=== PATIENT | female | born 1995 | race American Indian/Alaskan Native ===

== ENCOUNTER 2018-06-16 15:03 | Emergency (ER) | payer MEDICAID ==
--- NOTE | 2018-06-16 16:06 | EDM.PDOC ---
ED HPI GENERAL MEDICAL PROBLEM <LeonelAlecia Albaro - Last Filed: 06/16/18 19:49> <Paolo Caba - Last Filed: 06/29/18 22:32> - General Source of Information: Reports: Patient History Limitations: Reports: No Limitations - History of Present Illness Severity: Mild <TierraadriánHamzah - Last Filed: 07/05/18 10:10> - General Chief Complaint: POULTRY PROCESSOR Problem Stated Complaint: -BLEEDING [id number] Time Seen by Provider: 06/16/18 15:30 - History of Present Illness INITIAL COMMENTS - FREE TEXT/NARRATIVE: Patient is a . Both pregnancies were unremarkable, spontaneous vaginal deliveries. Patient is unsure why her second baby was by about one month. Patient presents with vaginal bleeding that happened yesterday. Patient is a poor historian and says the bleeding was not very much, she did not even wear a pad, about a dime size maybe. There was some blood when she went to the bathroom last night as well, again a small amount. Today the patient has not had any bleeding, but has had some brown discharge. She also had some cramping last night (2 times) that was just "one pain when I moved wrong, but it went away right away." She has also been tired for the past few days. Patient does not remember her LMP, but thinks it was in March. Patient receives care at [facility], she was supposed to get an u/s, but did not go to the appt. She has an u/s scheduled in 2 weeks in [place]. 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: Musculoskeletal History: Reports: None Neurological History: Reports: None Psychiatric History: Reports: None Endocrine/Metabolic History: Reports: None Hematologic History: Reports: None Immunologic History: Reports: None Oncologic (Cancer) History: Reports: None Dermatologic History: Reports: None - Infectious Disease History Infectious Disease History: Reports: Chicken Pox - Past Surgical History Head Surgeries/Procedures: Reports: None GI Surgical History: Reports: Cholecystectomy <CourtneyHamzah L - Last Filed: 07/05/18 10:10> Social & Family History - Tobacco Use Smoking Status *Q: Current Every Day Smoker Years of Tobacco use: 4 Packs/Tins Daily: 0.5 Second Hand Smoke Exposure: No - Caffeine Use Caffeine Use: Reports: None - Recreational Drug Use Recreational Drug Use: No <Hamzah Valdez - Last Filed: 07/05/18 10:10> ED ROS GENERAL - Review of Systems Review Of Systems: See Below Constitutional: Reports: Fatigue (for the past couple days) HEENT: Denies: Vision Change Respiratory: Denies: Shortness of Breath Cardiovascular: Denies: Chest Pain, Claudication, Edema, Lightheadedness GI/Abdominal: Reports: Abdominal Pain (see HPI). Denies: Constipation, Diarrhea , Nausea, Vomiting : Reports: Discharge. Denies: Dysuria, Frequency, Hematuria, Urgency Neurological: Denies: Headache <Hamzah Valdez - Last Filed: 07/05/18 10:10> ED EXAM <Alecia Castaneda - Last Filed: 06/16/18 19:49> <Paolo Caba - Last Filed: 06/29/18 22:32> - Physical Exam Exam: See Below Exam Limited By: No Limitations General Appearance: Alert, WD/WN, No Apparent Distress Eye Exam: Bilateral Eye: EOMI, Normal Inspection, PERRL Nose: No Blood Neck: Supple, Non-Tender, Full Range of Motion. No: Lymphadenopathy (L) Respiratory/Chest: No Respiratory Distress, Lungs Clear, Normal Breath Sounds, No Accessory Muscle Use, Chest Non-Tender Cardiovascular: Normal Peripheral Pulses, Regular Rate, Rhythm, No Edema, No Gallop, No JVD, No Murmur, No Rub GI/Abdominal Exam: Normal Bowel Sounds, Soft, Non-Tender, No Organomegaly, No Distention, No Abnormal Bruit, No Mass, Pelvis Stable Rectal Exam: Deferred (Female) Exam: Deferred for Placenta Previa (possibility (not confirmed previa) with bleeding ) Back Exam: No: CVA Tenderness (L), CVA Tenderness (R), Paraspinal Tenderness Extremities: Normal Inspection, Normal Range of Motion, Non-Tender, Normal Capillary Refill, No Pedal Edema Neurological: Alert, Oriented, CN II-XII Intact, Normal Cognition, Normal Gait, Normal Reflexes, No Motor/Sensory Deficits Psychiatric: Normal Affect, Normal Mood Skin Exam: Warm, Dry, Intact, Normal Color, No Rash Lymphatic: No Adenopathy <Hamzah Valdez - Last Filed: 07/05/18 10:10> - Physical Exam Text/Narrative:: Patient presents with blue dye all over hands, arms, and scalp, she says she just dyed her hair. (Hamzah Valdez) Course <Alecia Castaneda - Last Filed: 06/16/18 19:49> <Paolo Caba - Last Filed: 06/29/18 22:32> <Hamzah Valdez - Last Filed: 07/05/18 10:10> - Vital Signs Last Recorded V/S: Last Vital Signs Temp 97.7 F 06/16/18 15:18 Pulse 105 H 06/16/18 15:18 Resp 16 06/16/18 15:18 BP 125/76 06/16/18 15:18 Pulse Ox 99 06/16/18 15:18 - Orders/Labs/Meds Labs: Laboratory Tests 06/16/18 06/16/18 06/16/18 Range/Units 16:15 16:15 16:15 WBC 9.4 (5.0-10.0) 10^3/uL RBC 3.87 L (4.2-5.4) 10^6/uL Hgb 12.2 D (12.0-16.0) g/dL Hct 34.7 L (37.0-47.0) % MCV 89.7 (80-100) fL MCH 31.5 (27.0-34.0) pg MCHC 35.2 H (33.0-35.0) g/dL Plt Count 309 (150-450) 10^3/uL Neut % (Auto) 68.3 (42.2-75.2) % Lymph % (Auto) 22.5 (20.5-50.1) % [place] % (Auto) 6.5 (2-8) % Eos % (Auto) 2.5 (1.0-3.0) % Baso % (Auto) 0.2 (0.0-1.0) % Sodium (135-145) mmol/L Potassium (3.6-5.0) mmol/L Chloride (101-111) mmol/L Carbon Dioxide (21.0-31.0) mmol/L Anion Gap BUN (7-18) mg/dL Creatinine (0.6-1.3) mg/dL Est Cr Clr Drug Dosing mL/min Estimated GFR (MDRD) BUN/Creatinine Ratio Glucose (74-105) mg/dL Calcium (8.4-10.2) mg/dl Total Bilirubin (0.2-1.0) mg/dL AST (10-42) IU/L ALT (10-60) IU/L Alkaline Phosphatase (42-121) IU/L Total Protein (6.7-8.2) g/dl Albumin (3.2-5.5) g/dl Globulin Albumin/Globulin Ratio HCG, Qual Positive HCG, Quant > 1359 H (0-25) mIU/ml Beta HCG, Quant 04096 mIU/ml Urine Color (YELLOW) Urine Appearance (CLEAR) Urine pH (5.0-9.0) Ur Specific [place] (1.005-1.030) Urine Protein (NEGATIVE) Urine Glucose (UA) (NEGATIVE) Urine Ketones (NEGATIVE) Urine Occult Blood (NEGATIVE) Urine Nitrite (NEGATIVE) Urine Bilirubin (NEGATIVE) Urine Urobilinogen (0.2-1.0) mg/dL Ur Leukocyte Esterase (NEGATIVE) Urine RBC /HPF Urine WBC (0-5/HPF) /HPF Ur Epithelial Cells /HPF Amorphous Sediment (0/HPF) /HPF Urine Bacteria (0-FEW/HPF) /HPF Urine Opiates Screen (NEGATIVE) Ur Oxycodone Screen (NEGATIVE) Urine Methadone Screen (NEGATIVE) Ur Barbiturates Screen (NEGATIVE) U Tricyclic Antidepress (NEGATIVE) Ur Phencyclidine Scrn (NEGATIVE) Ur Amphetamine Screen (NEGATIVE) U Methamphetamines Scrn (NEGATIVE) Urine MDMA Screen (NEGATIVE) U Benzodiazepines Scrn (NEGATIVE) Urine Cocaine Screen (NEGATIVE) U Marijuana (THC) Screen (NEGATIVE) 04/06/16/18 06/16/18 Range/Units 16:15 16:22 16:22 WBC (5.0-10.0) 10^3/uL RBC (4.2-5.4) 10^6/uL Hgb (12.0-16.0) g/dL Hct (37.0-47.0) % MCV (80-100) fL MCH (27.0-34.0) pg MCHC (33.0-35.0) g/dL Plt Count (150-450) 10^3/uL Neut % (Auto) (42.2-75.2) % Lymph % (Auto) (20.5-50.1) % [place] % (Auto) (2-8) % Eos % (Auto) (1.0-3.0) % Baso % (Auto) (0.0-1.0) % Sodium 134 L (135-145) mmol/L Potassium 3.9 (3.6-5.0) mmol/L Chloride 103 (101-111) mmol/L Carbon Dioxide 21.0 (21.0-31.0) mmol/L Anion Gap 13.9 BUN 7 (7-18) mg/dL Creatinine 0.4 L (0.6-1.3) mg/dL Est Cr Clr Drug Dosing 209.08 mL/min Estimated GFR (MDRD) > 60 BUN/Creatinine Ratio 17.50 Glucose 86 (74-105) mg/dL Calcium 8.1 L (8.4-10.2) mg/dl Total Bilirubin 0.4 (0.2-1.0) mg/dL AST 34 (10-42) IU/L ALT 36 (10-60) IU/L Alkaline Phosphatase 61 (42-121) IU/L Total Protein 5.9 L (6.7-8.2) g/dl Albumin 3.4 (3.2-5.5) g/dl Globulin 2.5 Albumin/Globulin Ratio 1.36 HCG, Qual HCG, Quant (0-25) mIU/ml Beta HCG, Quant mIU/ml Urine Color Yellow (YELLOW) Urine Appearance Clear (CLEAR) Urine pH 8.5 (5.0-9.0) Ur Specific [place] 1.015 (1.005-1.030) Urine Protein Trace H (NEGATIVE) Urine Glucose (UA) Negative (NEGATIVE) Urine Ketones Negative (NEGATIVE) Urine Occult Blood Negative (NEGATIVE) Urine Nitrite Negative (NEGATIVE) Urine Bilirubin Negative (NEGATIVE) Urine Urobilinogen 1.0 (0.2-1.0) mg/dL Ur Leukocyte Esterase Negative (NEGATIVE) Urine RBC 0-5 /HPF Urine WBC Not seen (0-5/HPF) /HPF Ur Epithelial Cells Few /HPF Amorphous Sediment Moderate H (0/HPF) /HPF Urine Bacteria Moderate H (0-FEW/HPF) /HPF Urine Opiates Screen Negative (NEGATIVE) Ur Oxycodone Screen Negative (NEGATIVE) Urine Methadone Screen Negative (NEGATIVE) Ur Barbiturates Screen Negative (NEGATIVE) U Tricyclic Antidepress Negative (NEGATIVE) Ur Phencyclidine Scrn Negative (NEGATIVE) Ur Amphetamine Screen Negative (NEGATIVE) U Methamphetamines Scrn Negative (NEGATIVE) Urine MDMA Screen Negative (NEGATIVE) U Benzodiazepines Scrn Negative (NEGATIVE) Urine Cocaine Screen Negative (NEGATIVE) U Marijuana (THC) Screen Negative (NEGATIVE) - Re-Assessments/Exams Free Text/Narrative Re-Assessment/Exam: 06/16/18 18:58 I have examined the patient. I have discussed findings and treatment plan with the medical student. I agree with the assessment and plan in the following medical student's note. (Paolo Caba) Departure - Departure Time of Disposition: 19:49 Condition: Good - Discharge Information *PRESCRIPTION DRUG MONITORING PROGRAM REVIEWED*: No *COPY OF PRESCRIPTION DRUG MONITORING REPORT IN PATIENT PAT: No <Alecia Castaneda - Last Filed: 06/16/18 19:49> <Paolo Caba - Last Filed: 06/29/18 22:32> - Departure Time of Disposition: 19:55 <Hamzah Valdez - Last Filed: 07/05/18 10:10> - Departure Disposition: Home, Self-Care 01 Clinical Impression: Subchorionic hematoma - Discharge Information Instructions: Subchorionic Hematoma Referrals: PCP,None [Primary Care Provider] - Forms: ED Department Discharge Additional Instructions: rest light activity no heavy lifting set OB exam Need to have ultra sound repeated in 10 days urgent follow up severe bleeding or fever no intercourse until seen by OB
[2018-06-16 16:48] LABS: ANION GAP 13.9; CHLORIDE,CL 103 mmol/L (101-111); SODIUM,NA 134 mmol/L (135-145)
== END 2018-06-16 19:58 | disposition home or self-care (01) ==
LOC: DL.ED 15:03
DX: O20.8 Other hemorrhage in early pregnancy (principal); O99.331 Smoking (tobacco) complicating pregnancy, first trimester; F17.210 Nicotine dependence, cigarettes, uncomplicated; Z3A.15 15 weeks gestation of pregnancy
CPT/HCPCS: 36415; 76815; 80053; 80305-QW; 81001; 84702; 84703; 85025; 99285-25

== ENCOUNTER 2018-11-17 04:27 | Inpatient (IN) | payer MEDICAID ==
[2018-11-17] MEDS ORDERED: Sodium Chloride 0.9% 10 ML Syringe FLUSH PRN ×2 (04:42→05:22)
[2018-11-17] MEDS ORDERED: Lactated Ringers 1,000 ML IV SCH ×2 (04:45→13:30)
[2018-11-17] MEDS: Lactated Ringers 1,000 ML IV SCH ×2 (04:50→06:18)
[2018-11-17] MEDS ORDERED: Labetalol 100 MG/20 ML MDV IVPUSH ONE ×2 (05:16→05:52)
[2018-11-17] MEDS ORDERED: Labetalol 100 MG/20 ML MDV ONE (05:19)
[2018-11-17] MEDS ORDERED: Betamethasone Acetate/Betamethasone Sod Phosphate 30 MG/5 ML MDV ONE (05:21)
[2018-11-17] MEDS ORDERED: Magnesium Sulfate/Water 100 ML ONE (05:21)
[2018-11-17] MEDS ORDERED: Penicillin G Potassium 5,000,000 Unit Vial ONE (05:21)
[2018-11-17] MEDS ORDERED: Acetaminophen 325 MG Tab PO PRN (05:22)
[2018-11-17] MEDS ORDERED: fentaNYL 100 MCG/2 ML SDV IVPUSH PRN (05:22)
[2018-11-17] MEDS ORDERED: Tranexamic Acid 1,000 MG in Sodium Chloride 0.9% 100 ML IV PRN ×2 (05:22→09:09)
[2018-11-17] MEDS ORDERED: Lidocaine 1% 30 ML SDV INJECT PRN (05:22)
[2018-11-17] MEDS ORDERED: Methylergonovine 0.2 MG/1 ML Amp IM PRN (05:22)
[2018-11-17] MEDS ORDERED: Carboprost Tromethamine 250 MCG/1 ML Amp IM PRN ×2 (05:22→09:09)
[2018-11-17] MEDS ORDERED: Penicillin G Potassium 5 MILLUNITS in Sodium Chloride 0.9% 100 ML IV ONE (05:22)
[2018-11-17] MEDS ORDERED: Misoprostol 400 MCG (4 X 100 MCG TAB) RECTAL PRN ×2 (05:22→09:09)
[2018-11-17] MEDS ORDERED: Ondansetron 4 MG/2 ML SDV IV PRN (05:22)
[2018-11-17] MEDS ORDERED: Magnesium Sulfate/Water 100 ML IV ONE (05:25)
[2018-11-17] MEDS ORDERED: Betamethasone Acetate/Betamethasone Sod Phosphate 30 MG/5 ML MDV IM ONE (05:25)
[2018-11-17] MEDS ORDERED: Oxytocin/Normal Saline 30 UNIT/500 ML BAG IV SCH (05:30)
[2018-11-17] MEDS: Magnesium Sulfate/Water 20 GM/500 ML BAG IV SCH ×2 (06:05→16:15)
[2018-11-17] MEDS: Penicillin G Potassium 3 MILLUNITS in Sodium Chloride 0.9% 100 ML IV SCH ×2 (07:40→10:15)
--- NOTE | 2018-11-17 08:00 | HP ---
SUBJECTIVE: Lower abdominal pains that come and go. HISTORY OF PRESENT ILLNESS: A 23-year-old 3, para 1-1-0-2, currently at 37 and 1/7 weeks' gestation based on 15-week ultrasound performed as an outpatient at [facility], complaining of lower abdominal pains that come and go in a cramping quality like sensation. She denies any leakage of fluid or vaginal bleeding. She has had good movement. Denies any formal care so far this . Records here at [facility] show ultrasound performed on 06/16/2018, estimated size 15 weeks 1 day, due date 12/07/2018. Baby at the 33rd percentile for growth. Anterior placenta, no signs of previa, with a large subchorionic bleed noted. No other specific findings and no anatomy screen. Urine drug test at that time was negative. Urinalysis negative. Hemoglobin was 12.2, platelets 309. Chemistry panel; low protein and calcium, otherwise pretty unremarkable. OBSTETRICAL HISTORY: The patient reports 2 prior vaginal deliveries; first one full term without complications; second one 1 month early, no complications, no known reason for why she delivered 1 month early. LABS: None on file. PAST MEDICAL HISTORY: Reportedly negative. SURGICAL HISTORY: Negative. FAMILY HISTORY: The patient and her mother report nothing of significance at this time on brief questioning. MEDICATIONS: None. ALLERGIES: None. SOCIAL HISTORY: The patient lives with her sister, her own children, and her sister's children. Reports that the father of the baby is not actively involved. She admits to use of marijuana during the . Denies any other street drugs. Denies any use of alcohol. Smokes about 2 cigarettes per day. REVIEW OF SYSTEMS: No chest pain, shortness of breath, headaches, blurry vision, nausea, vomiting, diarrhea, constipation, fever, or chills. OBJECTIVE: General: A pleasant but very uncomfortable 23-year-old female, breathing through her contractions. Vital Signs: Initial vitals are not available to me. Current vitals; blood pressure 163/89 with a recheck of 172/102, this is after 20 mg of IV labetalol; pulse 114, down to 66 now; respiratory rate of 18; and she is afebrile. HEENT: Grossly unremarkable. Neck: Supple without adenopathy. Heart: Regular without murmur. Lungs: Clear to auscultation bilaterally. Abdomen: Gravid with a fundal height of 33 to 34 cm. heart tracing; baseline heart rate 140 beats per minute currently with moderate beat-to- beat variability. Not much in the way of accels at this time. Prior strip not currently in my hands for review. [place] not currently picking up contractions. The patient has been reporting pains about every 3 minutes. Cervical Exam: Vertex 8 cm dilated, bag of water intact, 95% effaced, and -2 station. Extremities: Trace edema. No erythema or tenderness noted. INITIAL LABS: Hemoglobin 14.1, platelets 284. Remainder of the PIH panel not yet available. Blood type information not available in the chart. ASSESSMENT: 1. 37 and 1/7 weeks' intrauterine based on 15-week ultrasound. 2. Gestational hypertension, waiting on labs to rule out preeclampsia. 3. Intrauterine growth restriction suspected, ultrasound today puts her at 33 weeks 2 days gestation. Estimated weight 2134 g, +/-316 g. Anterior, mature placenta. SWETHA of approximately 5. 4. Oligohydramnios. 5. No care. 6. Group B strep unknown. 7. Marijuana abuse. 8. Tobacco abuse. 9. History of delivery. PLAN: Expect vaginal delivery. Intensive Care Nursery has been called. With baby dating at 37 weeks by 15-week ultrasound, yet ultrasound showing baby to be 33 to 34 weeks' gestation, high anticipation that baby will need Intensive Care Nursery Services and transfer. With history of subchorionic bleed and the patient's current pain complaints, I suspect possible abruption developing with gestational hypertension. She is to be ruled out for preeclampsia; however, that could also be her cause for complications at this time. [facility] /[id number]
[2018-11-17] MEDS ORDERED: fentaNYL 100 MCG/2 ML SDV ONE (08:49)
[2018-11-17] MEDS ORDERED: Simethicone 80 MG Tab.Chew PO PRN (09:09)
[2018-11-17] MEDS ORDERED: Measles, Mumps & Rubella Vaccine 0.5 ML SDV SUBCUT ONE (09:09)
[2018-11-17] MEDS ORDERED: Benzocaine/Menthol 20%-0.5% Spray 56 GM Canister TOP PRN (09:09)
[2018-11-17] MEDS ORDERED: Calcium Gluconate 10% 1 GM/10 ML SDV IVPUSH PRN (09:33)
[2018-11-17] MEDS ORDERED: diazePAM 5 MG/ML MDV IVPUSH PRN (09:35)
[2018-11-17] MEDS ORDERED: Diphtheria,Pertussis(Acell),Tetanus Vaccine 0.5 ML SDV IM ONE (10:00)
--- NOTE | 2018-11-17 10:36 | PN ---
DATE: 11/17/2018 SUBJECTIVE: The patient is tolerating procedure well, continuing to have low pelvic pressure and cramping, but doing well without intrathecal. Blood pressures are improved with our 2 doses of 20 mg of IV labetalol. OBJECTIVE: Vital Signs: Blood pressure 152/91, pulse of 64. She is afebrile. Cervix is 9 cm dilated. Bulging bag of water intact, ruptured with AmniHook with return of lightly stained meconium fluid. heart tracing is baseline of 140 beats per minute with minimal variability. No accelerations. Prior strip only shows 10 x 10's and toco shows a lot of uterine irritability. Last couple of contractions were about 4 minutes apart. Anticipate things will progress now that the bag of water is broken. ASSESSMENT: Unchanged from admission H and P, however, category 3 tracing at this time. I am expecting rapid vaginal delivery. intensive care nursery team is in town and on their way to the hospital, and they should be able to be set up right at the same time that baby delivers. section could be considered for the non-reassuring heart tracing; however, that in reality, I anticipate, will take longer than delivering her vaginally. [facility] /[id number]
[2018-11-17] MEDS: Ibuprofen 800 MG Tab PO PRN ×2 (11:15→21:52)
[2018-11-17] MEDS: ceFAZolin 1 GM in Premix Bag 1 BAG IV SCH ×2 (13:35→21:53)
--- NOTE | 2018-11-17 20:06 | DEL ---
DATE: 11/17/2018 PREPROCEDURE DIAGNOSES: 1. 37 and 1/7 weeks' intrauterine based on 15-week ultrasound. 2. 3, para 1-1-0-2. 3. Intrauterine growth restriction diagnosed by ultrasound today at 33 weeks 2 days gestational size, estimated weight 2100 g. 4. Oligohydramnios, SWETHA of 5. 5. No care. 6. Marijuana abuse. 7. Tobacco abuse. 8. History of delivery. 9. Group B strep status unknown. 10.Rubella status unknown. 11.Blood type O positive. 12.History of hepatitis C antibody positive. No confirmatory results are available. 13.Meconium-stained fluid. 14.Inverted T-waves on telemetry with a normal EKG. POSTPROCEDURE DIAGNOSES: 1. 37 and 1/7 weeks' intrauterine based on 15-week ultrasound. 2. 3, para 1-1-0-2. 3. Intrauterine growth restriction diagnosed by ultrasound today at 33 weeks 2 days gestational size, estimated weight 2100 g. 4. Oligohydramnios, SWETHA of 5. 5. No care. 6. Marijuana abuse. 7. Tobacco abuse. 8. History of delivery. 9. Group B strep status unknown. 10.Rubella status unknown. 11.Blood type O positive. 12.History of hepatitis C antibody positive. No confirmatory results are available. 13.Meconium-stained fluid. 14.Inverted T-waves on telemetry with a normal EKG. 15.Status post spontaneous vaginal delivery, viable term female. 16.Cord avulsion. 17.Manual removal of the placenta. BRIEF HISTORY: A 23-year-old female presented to the hospital this morning with active onset of labor and was 8 cm dilated at the time of presentation. Blood pressures were severe, as high as 170s/110s, and she was treated with IV labetalol and pressures did become controlled. She did not receive any pain medications prior to delivery, but did receive 100 mcg of fentanyl for delivery of the placenta. Her labor was progressing well. Once all of her labs were received, she was started on magnesium sulfate, and she was also given penicillin for group B strep prophylaxis for the baby. The dose of betamethasone was ordered given that our first impression was that she was only 34 weeks' gestation and it was later that we found the earlier ultrasound putting her at 37 weeks' gestation. After she reached 9 cm, her labor had essentially stalled and so artificial rupture of membranes was performed followed by augmentation with Pitocin, and she went on to spontaneous vaginal delivery with details below. DESCRIPTION OF PROCEDURE: With the patient in dorsal lithotomy position, she delivered a viable female infant in the OA position over intact perineum. Baby had strong vigorous cry; was dried and stimulated. Three-vessel umbilical cord was doubly clamped and then cut, and baby handed off to the awaiting NICU team. Attention then returned to the mother, and with gentle cord traction and concomitant uterine massage, the cord easily avulsed and placenta was ultimately delivered via manual extraction. After the placenta was removed, it appeared to be intact. There was a final check of the uterus to verify there were no remaining fragments present. Labia and vagina were inspected, and there was some superficial abrasions in the perineal area, but nothing needing repair. There was a small anterior right labial laceration, hemostatic and also did not need repair. The patient overall tolerated the procedure quite well including the manual extraction of the placenta. ESTIMATED BLOOD LOSS: 500 mL. COMPLICATIONS: Cord avulsion with need for manual extraction of the placenta. FINDINGS: Viable female . Weight 1960 g, 4 pounds 5 ounces. scores of 8 and 9. Meconium-stained fluid. No abruption signs present. Thin umbilical cord and minimal amniotic fluid. DISPOSITION: Mother to remain in the delivery room. Baby is being transferred to the Intensive Care Nursery in [place]. [facility] /[id number]
[2018-11-17] MEDS: Docusate Sodium 100 MG Cap PO PRN (21:53)
[2018-11-18] MEDS: Magnesium Sulfate/Water 20 GM/500 ML BAG IV SCH (02:04)
[2018-11-18] MEDS: ceFAZolin 1 GM in Premix Bag 1 BAG IV SCH (05:56)
[2018-11-18] MEDS ORDERED: Ferrous Sulfate 325 MG Tab PO SCH (08:00)
[2018-11-18] MEDS ORDERED: Sodium Chloride 0.9% 10 ML Syringe FLUSH PRN (08:10)
[2018-11-18] MEDS: Docusate Sodium 100 MG Cap PO PRN ×2 (09:23→20:21)
[2018-11-18] MEDS: Prenatal Multivitamin with Calcium/Folic Acid/Iron Tab PO SCH (09:23)
[2018-11-18] MEDS: Ferrous Sulfate 325 MG Tab PO SCH ×3 (09:23→20:21)
[2018-11-18] MEDS: Ibuprofen 800 MG Tab PO PRN ×2 (09:24→20:21)
--- NOTE | 2018-11-18 11:43 | PN ---
DATE: 11/18/2018 SUBJECTIVE: day #1. Patient has been doing well. She has been maintained on bed rest because of her severe preeclampsia and is unable to really tell us about any symptoms of anemia. She does report that she is still tired and fatigued; however, that could be related to side effects of magnesium sulfate. She is looking forward to seeing her baby girl when she is able to be discharged home. Denies any concerns about depression at this time and is aware to look for signs and symptoms. She denies any headaches, blurry vision, chest pain, shortness of breath, right upper quadrant pain. She does have some abdominal tenderness and denies any change in her edema. Blood flow through the night has slowed significantly and fundal checks have been good. Yesterday, she did have passage of several large clots and at one point had checks weighing of over 1000 g. After a dose of TXA, that however resolved, and no other specific concerns have been raised. Records did show previous history of antibody positive for hepatitis C. Patient denies ever knowing about that test result or having any confirmatory testing performed. OBJECTIVE: GENERAL: A pleasant, 23-year-old female, lying in her bed. VITAL SIGNS: Temperature is 97.4, pulse 74, blood pressure currently 124/79, maximum was 144/87, respiratory rate of 18. HEART: Regular without murmur. LUNGS: Clear to auscultation bilaterally. ABDOMEN: Soft, nontender to touch. Her fundus is firm and at the umbilicus. EXTREMITIES: NEVA hose are on. No edema, erythema, or tenderness noted. Good capillary refill of the toes. LABORATORY DATA: Hemoglobin is down to 8.6, platelets 314. Magnesium sulfate level last was 5.8 at 6 a.m., and her AST is down to 57 from 73, ALT is down to 49 from 60. Her admission labs showed protein-creatinine ratio of 0.75. ASSESSMENT: 1. day #1, status post spontaneous vaginal delivery of an intrauterine growth restriction infant. 2. Severe preeclampsia coming up on 24 hours of magnesium sulfate. 3. 3, now para 2-1-0-3. 4. History of oligohydramnios. 5. No care. 6. Marijuana and tobacco abuse. 7. History of delivery. 8. Blood type O-positive. 9. Rubella equivocal and will need MMR vaccination. 10.Hepatitis C positive antibody history. Current labs are pending. 11.GBS status was unknown and she was given antibiotics in labor. 12.Meconium-stained fluid. 13.Umbilical cord avulsion requiring manual removal of the placenta. 14.Anemia of blood loss. 15.Elevated liver function tests due to severe preeclampsia. 16.Inverted T-waves on her telemetry, but a normal EKG. PLAN: Today, we will be discontinuing her Arora. Saline locking her IV, discontinuing the magnesium sulfate after 9 a.m. When she gets up to shower and is able to ambulate a little bit, we will see how her blood pressures respond, and we will also see how she is doing from the anemia symptoms standpoint as well as preeclampsia symptoms standpoint. I anticipate being able to discharge her tomorrow as long as things go well. I spent a fair amount of time with her today discussing all of her lab results, educating her about preeclampsia, the need for early care with her next , ways to hopefully manage these things in the future so as to not have these unexpected complications again. She has verbalized understanding and her questions have been answered. [facility] /[id number]
[2018-11-18] MEDS ORDERED: cefTRIAXone 250 MG Vial IM ONE (14:28)
[2018-11-18] MEDS ORDERED: Azithromycin 250 MG Tab PO ONE (14:30)
[2018-11-18] MEDS ORDERED: cefTRIAXone 250 MG, Lidocaine 1% 0.9 ML IM ONE ×2 (14:45)
[2018-11-18] MEDS: Labetalol 100 MG Tab PO SCH ×2 (14:53→21:00)
[2018-11-19 06:53] LABS: ANION GAP 10.7; CHLORIDE,CL 108 mmol/L (101-111); SODIUM,NA 137 mmol/L (135-145)
[2018-11-19] MEDS: Docusate Sodium 100 MG Cap PO PRN (08:24)
[2018-11-19] MEDS: Prenatal Multivitamin with Calcium/Folic Acid/Iron Tab PO SCH (08:25)
[2018-11-19] MEDS: Ferrous Sulfate 325 MG Tab PO SCH (08:25)
[2018-11-19] MEDS: Ibuprofen 800 MG Tab PO PRN (08:27)
[2018-11-19] MEDS: Labetalol 100 MG Tab PO SCH (08:28)
== END 2018-11-19 10:00 | disposition home or self-care (01) | DRG 806 ==
LOC: DL.OBCHECK 04:27 → DL.OB 04:42 → INTOOBSV 06:58 → OBSVTOIN 06:58 → DL.OB 08:44 → OBSVTOIN 08:44
PROVIDERS: ADMIT Family Medicine; ATTEND Family Medicine
PROC: 10E0XZZ Delivery of Products of Conception, External Approach (ICD-10-PCS; principal; 2018-11-17)
PROC: 10907ZC Drainage of Amniotic Fluid, Therapeutic from Products of Conception, Via Natural or Artificial Opening (ICD-10-PCS; 2018-11-17)
DX: O14.14 Severe pre-eclampsia complicating childbirth (principal); O41.03X0 Oligohydramnios, third trimester, not applicable or unspecified; Z37.0 Single live birth; D62 Acute posthemorrhagic anemia; O13.4 Gestational [pregnancy-induced] hypertension without significant proteinuria, complicating childbirth; O36.5930 Maternal care for other known or suspected poor fetal growth, third trimester, not applicable or unspecified; O99.324 Drug use complicating childbirth; O99.334 Smoking (tobacco) complicating childbirth; F17.200 Nicotine dependence, unspecified, uncomplicated; F12.10 Cannabis abuse, uncomplicated; O77.0 Labor and delivery complicated by meconium in amniotic fluid; Z3A.37 37 weeks gestation of pregnancy; Z67.40 Type O blood, Rh positive; O90.81 Anemia of the puerperium
CPT/HCPCS: 36415; 51702; 59409; 76805; 80053; 80305-QW; 82565; 82570; 83735; 84156; 84450; 84460; 84520; 84550; 85025; 85027; 86592; 86762; 86803; 86850; 86900; 86901; 87077; 87081; 87186; 87210; 87340; 87389; 87491; 87522; 87591; 90471; 90707; 90715; A9270-GY; J0690; J0696; J2001; J2540; J2590; J3010; J3475; J7050; J7120

== ENCOUNTER 2019-10-18 14:04 | Emergency (ER) | payer SELFPAY ==
[2019-10-18] MEDS ORDERED: Propofol 200 MG/20 ML SDV IV ONE (14:05)
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
--- NOTE | 2019-10-18 18:34 | CR ---
PROCEDURE INFORMATION: Exam: XR Left Tibia and Fibula Exam date and time: 10/18/2019 6:21 PM Age: 24 years old Clinical indication: Injury or trauma; Fall; Initial encounter; Fracture, traumatic; Closed fracture; Tibia; Left; Additional info: Post reduction TECHNIQUE: Imaging protocol: XR Left tibia and fibula. Views: 2 views. COMPARISON: CR Tibia Fibula Lt 10/18/2019 3:05 PM FINDINGS: Bones/joints: Displaced oblique or slightly spiral fracture of the distal left tibial metaphysis. There is posterior displacement of the distal fragment approximately 13 mm. A proximal fibular metaphyseal fracture shows mild comminution and near anatomic alignment. There is a posterior splint in place. Alignment is moderately improved since pre reduction images. Soft tissues: Mild anterior soft tissue swelling. IMPRESSION: 1. Improved alignment post reduction. There is still some posterior displacement and minor angulation of the distal tibial fragment. 2. Proximal fibular metaphyseal mildly comminuted fracture. Near anatomic alignment. 3. Posterior fiberglass splint in place.
[2019-10-18] MEDS ORDERED: HYDROmorphone 0.5 MG/0.5 ML Syringe IVPUSH ONE (18:39)
== END 2019-10-18 19:16 ==
LOC: DL.ED 14:04
DX: S82.402A Unspecified fracture of shaft of left fibula, initial encounter for closed fracture (principal); S82.202A Unspecified fracture of shaft of left tibia, initial encounter for closed fracture; Z90.49 Acquired absence of other specified parts of digestive tract; W19.XXXA Unspecified fall, initial encounter
CPT/HCPCS: 01462; 27752; 73590; 81001; 81025; 87086; 87088; 87186; 99152; 99153; 99285; J1170; J2704; 99284

== ENCOUNTER 2020-07-05 10:44 | Inpatient (IN) | payer MEDICAID ==
[2020-07-05] MEDS ORDERED: Ondansetron 4 MG/2 ML SDV IVPUSH PRN (11:18)
[2020-07-05] MEDS ORDERED: Methylergonovine 0.2 MG/1 ML Amp IM PRN (11:18)
[2020-07-05] MEDS ORDERED: Sodium Chloride 0.9% 10 ML Syringe FLUSH PRN (11:18)
[2020-07-05] MEDS ORDERED: Acetaminophen 325 MG Tab PO PRN ×2 (11:18)
[2020-07-05] MEDS ORDERED: Misoprostol 400 MCG (4 X 100 MCG TAB) RECTAL PRN (11:18)
[2020-07-05] MEDS ORDERED: Tranexamic Acid 1,000 MG in Sodium Chloride 0.9% 100 ML IV PRN (11:18)
[2020-07-05] MEDS ORDERED: Lactated Ringers 1,000 ML IV ONE ×2 (11:18→12:15)
[2020-07-05] MEDS ORDERED: Carboprost Tromethamine 250 MCG/1 ML Amp IM PRN (11:18)
[2020-07-05] MEDS ORDERED: Lidocaine 1% 30 ML SDV INJECT PRN (11:18)
[2020-07-05] MEDS ORDERED: Oxytocin/Normal Saline 30 UNIT/500 ML BAG IV SCH ×2 (11:30)
[2020-07-05] MEDS ORDERED: ceFAZolin 2 GM in Premix Bag 1 BAG IV ONE (11:30)
[2020-07-05] MEDS: Lactated Ringers 1,000 ML IV SCH ×4 (11:35→20:19)
[2020-07-05] MEDS ORDERED: ePHEDrine 50 MG/ML SDV IVPUSH PRN (11:37)
[2020-07-05] MEDS ORDERED: diphenhydrAMINE 50 MG/ML SDV IVPUSH PRN (11:37)
[2020-07-05] MEDS ORDERED: Naloxone 2 MG/2 ML Syringe IVPUSH PRN (11:37)
[2020-07-05] MEDS ORDERED: Lactated Ringers 1,000 ML IV SCH (11:45)
[2020-07-05] MEDS ORDERED: Oxytocin/Normal Saline 60 UNIT/1,000 ML BAG ONE (11:50)
[2020-07-05] MEDS ORDERED: Morphine PF 1 MG/ML Amp ITHECAL ONE (12:15)
[2020-07-05] MEDS ORDERED: Ondansetron 4 MG/2 ML SDV IV ONE (12:15)
[2020-07-05] MEDS ORDERED: Promethazine 25 MG/ML SDV IM ONE ×2 (12:15→21:22)
[2020-07-05] MEDS ORDERED: Ketorolac 30 MG/ML SDV IVPUSH ONE (12:15)
[2020-07-05] MEDS ORDERED: Dexamethasone 4 MG/ML SDV IV ONE (12:15)
--- NOTE | 2020-07-05 13:33 | PN ---
DATE: 07/05/2020 SUBJECTIVE: The patient is comfortable, has been on oxygen, an IV has been started, positional changes have ensued. OBJECTIVE: Vital Signs: heart tones in the 160s to 170s range now, deceleration recently noted, and no accelerations noted since she has been here which has been over 40 to 50 minutes despite interventions and with decelerations as noted prior. ASSESSMENT AND PLAN: Intrauterine at 39 and 2/7 weeks by 25 and 2/7 weeks ultrasound with preeclampsia, unsure of severe features, awaiting labs. Hepatitis C positive; GBS unknown; anti Le(a) antibody; urinary tract infection in the with Escherichia coli treated; history of abnormal Pap; G4, P2- 1-0-3, with nonreassuring status despite interventions and at risk with preeclampsia. I did discuss with her and her male partner recommendation to proceed with primary low transverse at this time. Consent had been obtained earlier. Please see previous dictation. We will proceed as soon as crew is ready and available. If baby maintains a heart rate, may consider spinal versus general anesthesia and we will proceed based on maternal status. [facility] /[id number]
--- NOTE | 2020-07-05 13:33 | HP ---
PATIENT IDENTIFICATION: Tiffany Montano is a 25-year-old, G4, P2-1-0-3, intrauterine at 39 and 2/7 weeks by 25 and 2/7 weeks ultrasound with diagnosed preeclampsia back when she was 31 and 6/7 weeks. Hepatitis C positive. GBS unknown. Anti-Le(a) antibody, not associated with hemolytic disease of the antibody, urinary tract infection in - treated with Escherichia coli who presents for OB care. HISTORY OF PRESENT ILLNESS: The patient has not been seen since she was 31 and 6/7 weeks when preeclampsia was diagnosed. Multiple calls have been made through the clinic to try to get her come in. She called yesterday and was instructed to come to the OB floor and presented this morning. She denies any headaches, visual changes, or upper abdominal pain. She denies any spotting, bleeding, or leaking. She does describe some back pain that is worse at night when she is lying on her bed. To put this in context, she is hepatitis C positive with a quant RNA that was positive on 03/28/2020 having an anti-Le(a) antibody positive Escherichia coli in the , and history of preeclampsia with previous in 2019 with IUGR, oligohydramnios with that delivery. Records were called for, reviewed as below, and supplemented by the patient's history. ALLERGIES: None. MEDICATIONS: vitamin. PAST MEDICAL/PAST SURGICAL HISTORY: Remarkable for hepatitis C positive, tib- fib fracture on the left with surgery in September 2019 with pins placed, and laparoscopic cholecystectomy in 2019, history of preeclampsia in previous . FAMILY HISTORY: Diabetes in maternal grandmother. Mother is a twin. Negative family history of anesthesia, bleeding problems, or defects. SOCIAL HISTORY: Last time was seen living in [facility] at a motel. Currently, father of baby Mateo Jennings is present at today's visit. Denies drug use currently. No alcohol or drug use elicited. OB HISTORY: 1. 05/17/2012, delivered 40 weeks male, 7 pounds 1 ounce. 2. 03/30/2013, 36 weeks, delivered male, 4 pounds. 3. 11/17/2018, delivered term female with oligohydramnios, severe preeclampsia, IUGR. All of these were vaginal deliveries per the patient. REVIEW OF SYSTEMS: Reviewed and otherwise felt to be contributory for the above. No fever, chills, sweats, cough, cold, runny nose, upper abdominal pain, nausea, or vomiting. OBJECTIVE: Vital Signs: Blood pressure 155/98, recheck 140/95; heart rates between 100 to 102; temperature 97.3. Appearance: Female, appears stated age, acting appropriate. Nontoxic appearance. HEENT: Head is atraumatic. EOMs intact. PERRLA. No scleral icterus. No sore throat or rhinorrhea. Mucous membranes are moist. Neck: No obvious tenderness. Lungs: Clear to auscultation bilaterally. No increased work of breathing. Heart: S1 and S2. Regular rate and rhythm. No obvious extra heart sounds. No gallops. Abdomen: Soft, nontender, nondistended. Bowel sounds positive. No other organomegaly, pulsatile masses, or hernias. No rebound, rigidity, or guarding. Genitourinary: Normal external female genitalia. Normal position and presentation of urethra. Vaginal exam reveals her to be 1.5 cm dilated, 60% effaced, -1 and -2 station, vertex suspected. Extremities: Trace pedal edema. Deep tendon reflexes 2 to 3/4 bilaterally and symmetric in lower extremities. Psychiatric: Mood and affect congruent. Judgement and insight intact. Skin: Without any cyanosis, clubbing, or jaundice. LABORATORY DATA: Did reveal a hemoglobin of 13.9, platelets 315, and white cell count of 10.1. Pending are [facility] labs as well as a type and screen. heart tones on initial evaluation did reveal in the 150s to 160s with a deceleration and drop down into the 70s, lasted approximately 3 minutes until new baseline of 120 was met, and then had another decel that lasted less than a minute down into the 100s. At current time of dictation, heart tones are in the 150s to 160s. Tocometer reveals no obvious evidence of contractions, none felt by the patient. ASSESSMENT AND PLAN: 1. Intrauterine at 39 and 2/7 weeks by 25 and 2/7 weeks ultrasound. 2. Preeclampsia. No severe features based on symptoms or blood pressure. Labs are pending. We will follow closely. 3. Hepatitis C positive status. 4. GBS unknown. We will start Ancef 2 g IV due to concerns as noted as below. 5. Anti-Le(a) antibody, not associated with hemolytic disease of the . 6. Urinary tract infection in the with Escherichia coli - treated. 7. History of abnormal Pap smear with low-grade squamous intraepithelial lesion, 10/27/2019. 8. G4, P2-1-0-3. PLAN: 1. At current time of dictation, there are concerns with heart tones. IV fluids have been started, oxygen has been started, and the patient has tried a positional change. We will continue to follow clinically and closely. If there are any concerns further, we will consider further intervention and I did discuss this with the patient as well as potential need for . I did discuss with her and her male partner risks, benefits, and alternatives, complications of including but not limited to infection; bleeding; damage to organs such as bowel, bladder, tubes, uterus, ovaries, and sometimes fetus; rarely needing a blood transfusion or further surgery, and rare maternal or . She understands, agrees, and wishes to proceed if need be. Verbal and written consents were obtained and questions were answered. 2. In terms of her preeclampsia, we will await labs. If there are severe features, we will start magnesium sulfate. Otherwise, we will continue to follow clinically and closely at this point in time. 3. In terms of her hepatitis C positive status, we will follow closely. In terms of antibody, type and screen has been ordered. Her hemoglobin is excellent at 13.9 currently. 4. We will continue to follow maternal status closely. Await labs, make treatment plans accordingly. The patient understands and agrees with the above treatment plan. [facility] /[id number]
[2020-07-05] MEDS: Ketorolac 30 MG/ML SDV IVPUSH SCH (18:24)
[2020-07-05] MEDS: Simethicone 80 MG Tab.Chew PO SCH ×2 (18:24→22:45)
[2020-07-05] MEDS ORDERED: Promethazine 25 MG/ML SDV IM PRN (20:17)
[2020-07-06] MEDS: Ketorolac 30 MG/ML SDV IVPUSH SCH ×2 (00:31→06:30)
[2020-07-06] MEDS: Acetaminophen/oxyCODONE 325-5 MG Tab PO PRN ×4 (04:27→19:24)
[2020-07-06] MEDS: Lactated Ringers 1,000 ML IV SCH ×2 (04:29→12:35)
[2020-07-06] MEDS: Simethicone 80 MG Tab.Chew PO SCH ×3 (09:08→19:23)
[2020-07-06] MEDS: Prenatal Multivitamin with Calcium/Folic Acid/Iron Tab PO SCH (09:08)
--- NOTE | 2020-07-06 09:58 | OR ---
DATE: 07/05/2020 PREOPERATIVE DIAGNOSES: 1. Intrauterine at 39 and 2/7 weeks by 25 and 2/7 weeks ultrasound. 2. Nonreassuring status. 3. Preeclampsia without severe features. 4. Hepatitis C positive. 5. GBS unknown. 6. Anti-Le(a) antibody, not associated with hemolytic disease of . 7. Urinary tract infection in with Escherichia coli -treated. 8. History of abnormal Pap smear, low-grade squamous intraepithelial lesion 10/27/2019, failed to follow up. 9. G4, P2-1-0-3. POSTOPERATIVE DIAGNOSES: 1. Intrauterine at 39 and 2/7 weeks by 25 and 2/7 weeks ultrasound, delivered. 2. Nonreassuring status. 3. Preeclampsia without severe features. 4. Hepatitis C positive. 5. GBS unknown. 6. Anti-Le(a) antibody, not associated with hemolytic disease of . 7. Urinary tract infection in with Escherichia coli -treated. 8. History of abnormal Pap smear, low-grade squamous intraepithelial lesion 10/27/2019, failed to follow up. 9. G4, P2-1-0-3. 10.Thick meconium stained fluid, placenta, cord, and baby/vernix. 11.Abruption suspected with old blood noted with delivery of placenta. PROCEDURE PERFORMED: Primary low transverse with 2-layer uterine closure. FAMILY DENTIST: Christine Champagne PGY-III ANESTHESIA: Spinal. ESTIMATED BLOOD LOSS: 300 mL. IV FLUIDS: 1000 mL of lactated Ringer's, 250 mL of Pitocin. URINE OUTPUT: 250 mL and clear yellow. START: 12:28. UTERINE INCISION: 12:29. DELIVERY: 12:30. STOP: 12:55. FINDINGS: Female, score and weight pending. DESCRIPTION OF PROCEDURE IN DETAIL: After proper consent was obtained, the patient was brought to the operating room, where spinal anesthetic was administered. Arora was placed under preoperative under sterile conditions. Doptone of heart tones was done prior to prepping and were in the 80's. Subsequently, Betadine was called for timeliness and abdomen was prepped and draped under sterile fashion with patient placed in supine position with left lateral tilt. A skin incision was then made over lower abdomen in transverse Pfannenstiel-type fashion. This was carried down the fascia and scored in the midline. Subcutaneous tissue was raked laterally and bluntly, and fascial incision was extended transversely with blunt technique, and superiorly and inferiorly with blunt technique the rectus muscles and pyramidalis muscles from the fascia. Rectus muscles were in midline using blunt technique. Abdominal cavity was then entered with blunt technique. Incision was extended superiorly and inferiorly with blunt technique. Hamzah O large retractor was introduced and used. Vesicouterine peritoneum was identified, incised in a transverse fashion with Metzenbaum scissors and bladder flap was made digitally. A curvilinear incision was then made on lower uterine segment at 1229 hours. Uterus was entered sharply. Thick meconium-stained fluid returned. Uterine incision was then extended in a transverse fashion using blunt technique. vertex was then delivered through the incision followed by rest of the without difficulty. Mouth and nares were suctioned. Cord was doubly clamped and cut. Infant was brought over to team for resuscitation. Then, approximately 10 mL of cord blood was obtained for labs. Placenta, vernix/baby, and cord were meconium-stained and thick meconium-stained fluid was noted. Placenta was then delivered with gentle cord traction and fundal massage. Uterine cavity was cleared of all blood clots and debris with lap sponge. Wilson clamps were used to grasp the uterine incision. This was closed in a running locked fashion and tied at lateral margins with 1-0 Vicryl. Second imbricating layer was then applied and tied at lateral margins with 1-0 Vicryl. First inspection of the uterine incision revealed hemostasis. Hamzah O retractor was then removed and paracolic gutters were then cleared of all blood clots and debris with lap sponge. Anterior cul-de-sac was irrigated copiously, all blood clots were removed. Second and final inspection of uterine incision and anterior cul-de-sac revealed hemostasis. Rectus muscles were then reapproximated in midline with [id number] stitch using a Fish retractor to facilitate closure. Fish was subsequently removed after its use. Subfascial tissues were found to be hemostatic and fascia was closed in a running fashion and tied at lateral margins with 0 looped PDS. Subcutaneous tissue irrigated copiously. Hemostasis was reassured. Skin was reapproximated with medium anais. Sterile Aquacel dressing was applied. Uterine fundus was firm and massaged at the conclusion of the case, -1 below umbilicus. No immediate complications were noted. Sponge, lap and needle counts were correct. The patient received 2 g of Ancef preoperatively, Pitocin per protocol, and received Toradol at the conclusion of the case for pain control. Mother is currently stable at the time of dictation. when leaving the OR was being set up for CPAP and will be evaluated. [facility] /[id number] MTDD
[2020-07-06] MEDS ORDERED: Oxytocin/Normal Saline 30 UNIT/500 ML BAG IV ONE (11:52)
--- NOTE | 2020-07-06 12:34 | PN ---
DATE: 07/06/2020 Postop day #1. SUBJECTIVE: The patient is tolerating p.o., has not ambulated yet. Passing gas. Arora is still in place. OBJECTIVE: Vital Signs: Temperature 98.2, heart rate 96, blood pressure 120/68, and respiratory rate 18. Lungs: Clear to auscultation bilaterally. Heart: S1 and S2. Regular rate and rhythm. Genitourinary: Firm uterus around the umbilicus. Aquacel dressing. Mild shadowing in the midline extends to left no more and height of 1.5 cm and length, around 5 cm to 6 cm in length. LABORATORY DATA: White cell count 15.9, hemoglobin 10.7, and platelets 302 with predelivery hemoglobin being 13.9. ASSESSMENT: Postop day #1, status post primary low transverse section with 2-layer uterine closure due to nonreassuring status. With preeclampsia without severe features, appears to be resolving after delivery. With abruption noted at delivery as well as thick meconium-stained fluid, placenta cord, and baby. PLAN: The patient will be followed closely. Potential discharge on Thursday or Thursday this week and to discuss with physicians covering in my absence over the weekend. The patient understands, agrees to above treatment plan, and will plan on making follow up on Thursday for mom and baby at this time in the clinic and have them keep that appointment. [facility] /[id number]
[2020-07-06] MEDS: Docusate Sodium 100 MG Cap PO PRN (19:24)
[2020-07-06] MEDS: Ibuprofen 800 MG Tab PO PRN (19:24)
[2020-07-07] MEDS: Acetaminophen/oxyCODONE 325-5 MG Tab PO PRN ×5 (01:08→23:29)
[2020-07-07] MEDS: Simethicone 80 MG Tab.Chew PO SCH ×5 (01:09→23:29)
[2020-07-07] MEDS: Ibuprofen 800 MG Tab PO PRN ×3 (05:36→23:29)
[2020-07-07] MEDS: Prenatal Multivitamin with Calcium/Folic Acid/Iron Tab PO SCH (08:28)
[2020-07-07] MEDS: Docusate Sodium 100 MG Cap PO PRN (23:29)
[2020-07-08] MEDS: Acetaminophen/oxyCODONE 325-5 MG Tab PO PRN ×2 (05:10→09:00)
[2020-07-08] MEDS: Ibuprofen 800 MG Tab PO PRN (08:59)
[2020-07-08] MEDS: Prenatal Multivitamin with Calcium/Folic Acid/Iron Tab PO SCH (08:59)
[2020-07-08] MEDS: Docusate Sodium 100 MG Cap PO PRN (08:59)
[2020-07-08] MEDS: Simethicone 80 MG Tab.Chew PO SCH ×2 (08:59→14:26)
--- NOTE | 2020-07-09 06:53 | PN ---
DATE: 07/07/2020 SUBJECTIVE: Postoperative day #2. Patient has no complaints this morning. She states her pain is well controlled on current oral regimen. She denies any chest pain, shortness of breath, nausea, vomiting, fevers, or chills. She is tolerating oral intake without difficulty. She has been ambulating and denies any lightheadedness or dizziness. She is voiding without difficulty. She has not had a bowel movement this hospital stay but is passing gas. Her lochia is appropriate and has noted no increased vaginal bleeding or foul-smelling vaginal discharge. The patient would like to be discharged home tomorrow. OBJECTIVE: Vital Signs: Temperature 98.0 degrees Fahrenheit, pulse 93 beats per minute, blood pressure 126/89 mmHg, respiratory rate 16 breaths per minute, O2 saturation by pulse oximetry 99%. General: The patient is sleeping soundly in bed and awakens to voice, becomes alert, appears in no acute distress with an appropriate affect. Lungs: Clear to auscultation bilaterally with no adventitial breath sounds. Symmetric air entry. Abdomen: Soft, appropriately tender, with fundus firm approximately 4 fingerbreadths below the umbilicus. Incision: Covered with Aquacel dressing, which appears clean, dry, and intact. Extremities: Nontender, nonerythematous. No lower extremity edema. Heart: S1, S2 with regular rate and rhythm. LABORATORY DATA: Postoperative labs: White blood cell count 15.9, hemoglobin 10.7 (down from hemoglobin of 13.9 on admission), hematocrit 32.6, platelet count 302 (down from 315 on admission). ASSESSMENT: Postoperative day #2 status post primary low transverse section with 2-layer uterine closure due to non-reassuring status. With preeclampsia without severe features, appears to be resolved. With abruption noted at delivery and thick meconium-stained fluid, placenta, cord, and baby. PLAN: The patient is a G4, now P2-1-0-4. The patient is status post primary low transverse section. She is meeting and postoperative milestones as expected. is recovering well in the nursery and bottle feeding exclusively. We will continue routine cares and advance activity as tolerated with anticipation of discharge home on day #3. The patient does have a clinic appointment scheduled for Thursday for a weight check for the baby. FOLLOWUP PHYSICIAN: Dr. Hakeem Campos. [facility] /[id number]
--- NOTE | 2020-07-09 13:40 | DISCH ---
ADMITTING DIAGNOSES: 1. Intrauterine at 39 and 2/7 weeks' gestation, estimated by 25 and 2/7 weeks ultrasound status post primary low-transverse section. 2. Preeclampsia, history of and supporting laboratory and clinical evidence upon admission. 3. Hepatitis C positive. 4. Group B Streptococcus, status unknown. 5. Anti-Ming antibody positive (no increased risk for hemolytic disease of the ). 6. Urinary tract infection in , etiology Escherichia coli, treated. 7. History of abnormal Pap smear showing low-grade squamous intraepithelial lesion on 10/27/2019 with no followup. 8. G4, P3-1-0-4. 9. Preeclampsia diagnosed around 05/28/2020 without severe features. 10.Blood type O-positive, rubella immune. DISCHARGE DIAGNOSES: 1. Intrauterine at 39 and 2/7 weeks' gestation, estimated by 25 and 2/7 weeks ultrasound status post primary low-transverse section. 2. Preeclampsia, history of and supporting laboratory and clinical evidence upon admission. 3. Hepatitis C positive. 4. Group B Streptococcus, status unknown. 5. Anti-Ming antibody positive (no increased risk for hemolytic disease of the ). 6. Urinary tract infection in , etiology Escherichia coli, treated. 7. History of abnormal Pap smear showing low-grade squamous intraepithelial lesion on 10/27/2019 with no followup. 8. G4, P3-1-0-4. 9. Preeclampsia diagnosed around 05/28/2020 without severe features. 10.Blood type O-positive, rubella immune. PROCEDURE PERFORMED: Primary low-transverse section with 2-layer uterine closure under spinal anesthesia. BRIEF HISTORY: The patient is a 25-year-old, G4, now P3-1-0-4 who presented with an intrauterine at 39 and 2/7 weeks estimated by a 25 and 2/7 weeks ultrasound. The patient had limited care with 5 visits, the most recent being at 33 and 6/7 weeks at which time she was diagnosed with preeclampsia. The patient was unreachable and failed to follow up with further clinic appointments. She is hepatitis C positive and her group B status is unknown. She did test positive for anti-Ming antibody which is not associated with hemolytic disease of the . Also, had urinary tract infection in which was treated. Culture grew Escherichia coli. The patient did contact the clinic on 07/04/2020 and was instructed to come to the obstetric floor for evaluation. She presented the following morning. The patient did have elevated blood pressures to 155/98 upon admission sustaining into the 150s to 140 systolic. PIH labs were drawn upon admission. heart rate tracings did show borderline tachycardia with minimal variability. No accelerations and multiple decelerations. Due to nonreassuring status, the decision was made to proceed with primary low-transverse section shortly after admission. Procedure occurred without difficulty. ESTIMATED BLOOD LOSS: 300 mL. ANESTHESIA: Spinal anesthesia. FINDINGS: A viable female was born with score of 3, 6, and 8, weighing 2795 g, 6 pounds 3 ounces. There was thick meconium- stained fluid. Placenta, cord, baby, and vernix noted on delivery as well as a suspected old placental abruption. Infant did require CPAP and close followup after , but has since recovered. The patient has been recovering well postoperative and . Post delivery PIH labs did reveal preeclampsia with elevated liver enzymes. LDH and protein creatinine ratio of 302.6. Urine drug screen was positive for THC. HOSPITAL COURSE: The patient has been recovering appropriately and postoperatively. Vital signs have improved with systolic blood pressures in the 1 teens to 120s consistently and no systemic symptoms of headache, changes in vision, lightheadedness, weakness. Vaginal bleeding has decreased over time and she has noted no abnormal or foul-smelling vaginal discharge. She does note uterine tenderness which appears to be appropriate considering. The patient is a bottle-feeding baby. She has been ambulating without lightheadedness or dizziness and tolerating regular diet. She is voiding without difficulty. Has not had a bowel movement, but is passing gas. She denies any chest pain, shortness of breath, fevers, chills, or lower extremity swelling or pain. She appears clinically appropriate for discharge today. DISCHARGE CONDITION: Good. PHYSICAL EXAMINATION: Vital Signs: Temperature 98.4 degrees Fahrenheit, pulse 84 beats per minute, blood pressure 113/65 mmHg, SpO2 of 97%. General: The patient is sitting up in bed. She is alert, appears in no acute distress with an appropriate affect. Heart: S1, S2. Regular rate and rhythm without obvious murmur. Lungs: Clear to auscultation bilaterally with no adventitial breath sounds and symmetric chest expansion. Abdomen: Soft, appropriately tender, fundus firm 4 fingerbreadths below the umbilicus. Incision: Aquacel dressing in place with some shadowing, otherwise dry and intact. Extremities: Nontender, nonerythematous with no peripheral edema. LABORATORY DATA: Postoperative hemoglobin 10.7 (down from admission hemoglobin of 13.9), white blood cell counts postoperatively 15.9 (up from admission white blood cells of 10.1), and platelets postoperatively 302 (down from admission platelets of 315). Admission CMP: BUN 9, creatinine 0.58, GFR greater than 60, uric acid 5.2, AST 65, ALT 67, lactate dehydrogenase 324. Urinalysis significant for random total protein 20.4, teszcgv-[id number] ratio 302.6, toxicology screen significant for positive THC. DISPOSITION: Home with and significant other. MEDICATIONS: [id number] Tylenol and ibuprofen as needed for pain. Continue vitamin once daily. Begin iron 325 mg once daily with vitamin C. Ferrous sulfate 325 once daily. FOLLOWUP: The patient will be scheduled for 6-week routine examination, sooner if needed. She will also be seen in the clinic with infant followups with first being scheduled for tomorrow, 07/09/2020 in the clinic at 8 a.m. INSTRUCTIONS: Routine post vaginal delivery instructions were provided. All patient's questions were answered, and she agrees with the assessment and plan of care. FOLLOWUP PHYSICIAN: Dr. Hakeem Campos. [facility] /[id number]
== END 2020-07-08 15:10 | disposition home or self-care (01) | DRG 787 ==
LOC: DL.OBCHECK 10:44 → DL.OB 11:18 → OBSVTOIN 12:30 → DL.MS 07-06 11:01
PROVIDERS: ADMIT Family Medicine; ATTEND Family Medicine
PROC: 10D00Z1 Extraction of Products of Conception, Low, Open Approach (ICD-10-PCS; principal; 2020-07-05)
DX: O14.04 Mild to moderate pre-eclampsia, complicating childbirth (principal); O98.42 Viral hepatitis complicating childbirth; Z3A.39 39 weeks gestation of pregnancy; Z37.0 Single live birth; B19.20 Unspecified viral hepatitis C without hepatic coma; O77.0 Labor and delivery complicated by meconium in amniotic fluid
CPT/HCPCS: 01961; 36415; 51702; 80305-QW; 81003; 82565; 82570; 83615; 84156; 84450; 84460; 84520; 84550; 85027; 86850; 86900; 86901; A9270-GY; J0690; J1100; J1885; J2274; J2405; J2550; J2590; J7120; U0002

== ENCOUNTER 2021-12-18 13:39 | Inpatient (IN) | payer MEDICAID ==
[2021-12-18] MEDS ORDERED: Carboprost Tromethamine 250 MCG/1 ML Amp IM PRN (14:35)
[2021-12-18] MEDS ORDERED: ceFAZolin 2 GM in Premix Bag 1 BAG IV ONE (14:35)
[2021-12-18] MEDS ORDERED: Methylergonovine 0.2 MG/1 ML Amp IM PRN (14:35)
[2021-12-18] MEDS ORDERED: Acetaminophen 325 MG Tab PO PRN (14:35)
[2021-12-18] MEDS ORDERED: ePHEDrine 50 MG/ML SDV IVPUSH PRN (14:35)
[2021-12-18] MEDS ORDERED: Citric Acid/Sodium Citrate Solution 30 ML Cup PO ONE (14:35)
[2021-12-18] MEDS ORDERED: diphenhydrAMINE 50 MG/ML SDV IVPUSH PRN (14:35)
[2021-12-18] MEDS ORDERED: Acetaminophen/oxyCODONE 325-5 MG Tab PO PRN ×2 (14:35)
[2021-12-18] MEDS ORDERED: Naloxone 2 MG/2 ML Syringe IVPUSH PRN (14:35)
[2021-12-18] MEDS ORDERED: Tranexamic Acid 1,000 MG in Sodium Chloride 0.9% 100 ML IV PRN (14:35)
[2021-12-18] MEDS ORDERED: Misoprostol 400 MCG (4 X 100 MCG TAB) RECTAL PRN (14:35)
[2021-12-18] MEDS ORDERED: Ondansetron 4 MG/2 ML SDV IVPUSH PRN (14:35)
[2021-12-18] MEDS ORDERED: Oxytocin/Normal Saline 60 UNIT/1,000 ML BAG ONE (15:16)
[2021-12-18] MEDS: Lactated Ringers 1,000 ML IV SCH (15:21)
[2021-12-18 15:32] LABS: ESTIMATED GFR 126 mL/min (>=60)
[2021-12-18 15:35] LABS: AMPHETAMINES,URINE NEGATIVE (NEGATIVE); BARBITURATES,URINE NEGATIVE (NEGATIVE); BENZODIAZEPINE,URINE NEGATIVE (NEGATIVE); MDMA (ECSTASY), URINE NEGATIVE (NEGATIVE); METHADONE,URINE NEGATIVE (NEGATIVE); METHAMPHETAMINES,URINE NEGATIVE (NEGATIVE); OPIATES,URINE NEGATIVE (NEGATIVE); OXYCODONE,URINE NEGATIVE (NEGATIVE); PHENCYCLIDINE,URINE NEGATIVE (NEGATIVE); TCA,URINE NEGATIVE (NEGATIVE)
[2021-12-18] MEDS ORDERED: Oxytocin/Normal Saline 30 UNIT/500 ML BAG IV SCH (15:45)
[2021-12-18] MEDS ORDERED: Sodium Chloride 0.9% 10 ML Syringe IV ONE (16:00)
[2021-12-18] MEDS ORDERED: Dexamethasone 4 MG/ML SDV IV ONE (16:00)
[2021-12-18] MEDS ORDERED: Ondansetron 4 MG/2 ML SDV IV ONE (16:00)
[2021-12-18] MEDS ORDERED: Morphine PF 1 MG/ML Amp ONE (16:00)
[2021-12-18] MEDS ORDERED: Ketorolac 30 MG/ML SDV IVPUSH ONE (16:00)
[2021-12-18] MEDS ORDERED: ePHEDrine 50 MG/ML SDV IV ONE (16:00)
[2021-12-18] MEDS ORDERED: Lactated Ringers 1,000 ML IV ONE (16:00)
[2021-12-18] MEDS: Simethicone 80 MG Tab.Chew PO SCH ×2 (19:40→21:00)
[2021-12-19] MEDS: Ketorolac 30 MG/ML SDV IVPUSH SCH ×3 (00:08→11:55)
[2021-12-19] MEDS: Lactated Ringers 1,000 ML IV SCH ×2 (00:23→09:46)
[2021-12-19] MEDS: Prenatal Multivitamin with Calcium/Folic Acid/Iron Tab PO SCH (08:24)
[2021-12-19] MEDS: Simethicone 80 MG Tab.Chew PO SCH ×4 (08:24→21:10)
[2021-12-19] MEDS: Docusate Sodium 100 MG Cap PO PRN ×2 (08:55→21:11)
[2021-12-20] MEDS: Ibuprofen 800 MG Tab PO PRN ×2 (00:15→08:05)
[2021-12-20] MEDS: Prenatal Multivitamin with Calcium/Folic Acid/Iron Tab PO SCH (08:05)
[2021-12-20] MEDS: Docusate Sodium 100 MG Cap PO PRN (08:05)
[2021-12-20] MEDS: Simethicone 80 MG Tab.Chew PO SCH (08:05)
== END 2021-12-20 10:21 | disposition home or self-care (01) | DRG 788 ==
LOC: DL.OBCHECK 13:39 → DL.MS 14:40 → OBSVTOIN 16:23 → DL.MS 16:23
PROVIDERS: ADMIT Family Medicine; ATTEND Family Medicine
PROC: 10D00Z1 Extraction of Products of Conception, Low, Open Approach (ICD-10-PCS; principal; 2021-12-18)
PROC: 4A1HXCZ Monitoring of Products of Conception, Cardiac Rate, External Approach (ICD-10-PCS; 2021-12-18)
DX: O14.14 Severe pre-eclampsia complicating childbirth (principal); Z3A.38 38 weeks gestation of pregnancy; Z37.0 Single live birth; O34.211 Maternal care for low transverse scar from previous cesarean delivery
CPT/HCPCS: 01961; 36415; 59025; 80305-QW; 81003; 82565; 82570; 83615; 84156; 84450; 84460; 84520; 84550; 85027; 86850; 86870; 86900; 86901; A9270-GY; J0690; J1100; J1200; J1885; J2274; J2405; J2590; J3490; J7120; U0002